=== PATIENT | female | born 1995 | race Asian ===

== ENCOUNTER 2017-09-12 08:17 | Outpatient (CLI) | payer BC, OTHER ==
--- NOTE | 2017-09-12 09:32 | ULT ---
ABDOMINAL SONOGRAM: HISTORY: Upper abdomen pain. FINDINGS: The gallbladder has a normal appearance without evidence of stones. The common duct is 0.3 cm diamet er. The liver is unremarkable without focal mass or intrahepatic biliary dilatation. No free fluid is apparent. The spleen, kidneys, and visualized portions of the abdominal aorta, IVC, and pancreas have a normal sonographic appearance. IMPRESSION: Normal abdominal sonogram. POS: [facility]
--- NOTE | 2017-09-12 10:15 | RAD ---
UPPER GI WITH CONTRAST: Date: 09/12/17 HISTORY: Epigastric pain, right lower quadrant pain. COMPARISON: None. TECHNIQUE/FINDINGS: The patient was brought to the fluoroscopy suite. All questions were answered. The assembler flexible leads radiograph o f the abdomen was normal. The patient was initially give gas-forming crystals. The patient tolerated this well. Next, thick liquid barium was given. Normal primary and secondary peristalsis. No divertic ulum or stricture. No extrinsic mass effect. A barium tablet was given. The patient tolerated this wa ll. It passed quickly through the GE junction. Next, the patient was put in the CRUZ position. The pat ient was given thin liquid contrast to continuously drink. No reflux. No hernia. Primary and secondar y peristalsis normal. Spot images of the gastric mucosa, as well as of the duodenum are normal. IMPRESSION: Normal exam. FLUORO TIME: 1.7 minutes. POS: [facility]
== END 2017-09-12 08:18 | disposition home or self-care (01) ==
LOC: ULT 08:17
PROVIDERS: ATTEND Internal Medicine Gastroenterology
DX: R10.13 Epigastric pain (principal); R10.31 Right lower quadrant pain
CPT/HCPCS: 74247; 76700